=== PATIENT | female | born 1955 | race Caucasian/White ===

== ENCOUNTER 2018-08-07 06:14 | Day surgery (SDC) | payer OTHER, MEDICARE ==
[2018-08-06 19:22] VITALS: BMI 39.9
[2018-08-07] MEDS ORDERED: IBUPROFEN 800 MG/8 ML IJ IVPB PRN (07:36)
[2018-08-07] MEDS ORDERED: ONDANSETRON 4 MG/2 ML VIAL IVPUSH PRN (07:36)
[2018-08-07] MEDS ORDERED: oxyCODONE HCL 5 MG TABLET PO PRN (07:36)
[2018-08-07] MEDS ORDERED: IBUPROFEN 600 MG TABLET (FP) PO PRN (07:36)
--- NOTE | 2018-08-07 07:36 | HP ---
History & Physical Update - History History: No Change - Physical Physical: No Change - Assessment Assessment: No Change - Plan Plan: No Change (Recent H&P reviewed and no changes noted, consent signed and witnessed, all questions answered)
--- NOTE | 2018-08-07 07:36 | OP ---
Operative Note - Note: Operative Date: 08/07/18 Pre-Operative Diagnosis: 63yo P0 with thick endometrium Operation: Hysteroscopy, polypectomy, D&C Findings: Large nicol anterior wall polyp Post-Operative Diagnosis: Same as Pre-op Surgeon: Adriana Valderrama Anesthesiologist/TRAFFIC WORKER: Lenora Mcclellan Anesthesia: MAC Specimens Removed: Endometrial polyp Estimated Blood Loss (mls): 1 Drains & Tubes with Location: Fluid defficit 100cc Drains, Volume Out (mls): 10 Fluid Volume Replaced (mls): 300 Operative Report Dictated: Yes
[2018-08-07] MEDS ORDERED: LIDOCAINE HCL/PF 2% SDV 5ML VIAL ONE (07:45)
[2018-08-07] MEDS ORDERED: PROPOFOL 20 ML ONE ×2 (07:45)
[2018-08-07] MEDS ORDERED: ELECTROLYTE-148 SOLN 1,000 ML IV SCH (07:45)
[2018-08-07] MEDS ORDERED: MIDAZOLAM HCL 2 MG/2 ML SINGLE DOSE VIAL ONE (07:46)
[2018-08-07] MEDS ORDERED: KETOROLAC TROMETHAMINE 30 MG/1 ML VIAL ONE (08:13)
[2018-08-07] MEDS ORDERED: DEXAMETHASONE SOD PHOSPHATE 4 MG/1 ML VIAL ONE (08:13)
[2018-08-07] MEDS ORDERED: ACETAMINOPHEN 1000 MG/100 ML VIAL (NON FORMULARY) IVPB PRN (08:38)
[2018-08-07] MEDS ORDERED: LACTATED RINGERS SOLUTION 1,000 ML IV SCH (08:45)
--- NOTE | 2018-08-07 09:28 | OP ---
DATE OF OPERATION: 08/07/2018 PREOPERATIVE DIAGNOSIS: A 63-year-old para 0 with thick endometrium. OPERATION: Hysteroscopy, polypectomy, dilatation and curettage. FINDINGS: Large sessile anterior wall polyp. POSTOPERATIVE DIAGNOSIS: A 63-year-old para 0 with thick endometrium. SURGEON: Adriana Valderrama MD ANESTHESIOLOGIST: LIA Vanegas ANESTHESIA: MAC. SPECIMEN REMOVED: Endometrial polyp. DESCRIPTION OF THE OPERATIVE PROCEDURE: After assuring informed consent patient was brought to the operating room where she was placed in the dorsal lithotomy position. Perineum and vagina were prepped and draped in sterile fashion. Cervix was visualized using Jones retractors. It was grasped with single-tooth tenaculum and gradually dilated with increasing in size DeLee dilators to accommodate a 6.3-mm Symphion hysteroscope. The Symphion hysteroscope was introduced into the uterus atraumatically with good visualization of internal structures. The large anterior sessile polyp occupying anterior fundus was noted. Bilateral ostia were visualized as well. The resectoscope device was introduced through the hysteroscope and activated to resect the entirety of the polyp. Excellent hemostasis was noted throughout. Subsequently all instruments were removed from uterus, cervix and the vagina. The sponge and instrument count was correct x2. Estimated blood loss was 1 mL. Urine output was 10 mL. Fluid volume was 300 mL and fluid deficit was 100. Patient was brought to the recovery room in stable condition. Sindy [id number]
[2018-08-07 09:46] VITALS: TEMP 98
[2018-08-07 11:08] VITALS: BP 151/80; PULSE 96
--- NOTE | 2018-08-08 17:15 | PATH ---
Surgical Pathology Report Patient Name: OUSMANE OBRIEN [facility]. Rec. #: [id number] /Age/Gender: 1955 (Age: 63) / F Account: [id number] Location: [facility] SURGICAL Taken: 08/07/2018 Received: 08/07/2018 Reported: 08/08/2018 Physicians: Adriana Valderrama M.D. Specimen(s) Received ENDOMETRIAL CURETTINGS AND POLYP Clinical History Abnormal findings on diagnostic imaging Final Diagnosis ENDOMETRIAL CURETTINGS AND POLYP: FRAGMENTS OF ENDOMETRIAL POLYP. 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 SUGGEST CLINICAL CORRELATION. SEPARATES WEAKLY PROLIFERATIVE ENDOMETRIUM Electronically Signed Sathish Laguna M.D. Gross Description Received in formalin labeled "endometrial polyp and curettings" is a 2.1 x 2.0 x 0.2 cm aggregate of rajput soft tissue fragments. The specimen is entirely submitted in one cassette. /08/07/2018 saudi08/07/2018
== END 2018-08-07 10:40 | disposition home or self-care (01) ==
LOC: JASU-SURG 06:14
PROVIDERS: ATTEND Obstetrics & Gynecology
PROC: 0UJD8ZZ Inspection of Uterus and Cervix, Via Natural or Artificial Opening Endoscopic (ICD-10-PCS; 2018-08-07)
PROC: 0UB97ZX Excision of Uterus, Via Natural or Artificial Opening, Diagnostic (ICD-10-PCS; principal; 2018-08-07 07:30)
PROC: 0UDB7ZX Extraction of Endometrium, Via Natural or Artificial Opening, Diagnostic (ICD-10-PCS; 2018-08-07 07:30)
DX: D25.0 Submucous leiomyoma of uterus (principal); N84.0 Polyp of corpus uteri
CPT/HCPCS: 88305-TC; 94760